=== PATIENT | male | born 1965 | race Caucasian/White ===

== ENCOUNTER → 2017-10-21 | Outpatient (CLI) | payer OTHER ==
[2017-10-21 14:01] LABS: ALBUMIN 3.7 gm/dl (3.4-5.0); ALT/SGPT 100 U/L (12-78); BLOOD UREA NITROGEN 33 mg/dl (7-18); CALCIUM 9.6 mg/dl (8.5-10.1); CARBON DIOXIDE 23 mmol/L (21-32); GLUCOSE 87 mg/dl (70-99); POTASSIUM 4.3 mmol/L (3.5-5.1); SODIUM 130 mmol/L (136-145)
[2017-10-21 14:12] LABS: ALKALINE PHOSPHATASE 83 U/L (45-117); AST/SGOT 97 U/L (15-37); TOTAL PROTEIN 8.2 gm/dl (6.4-8.2)
[2017-10-22 06:12] LABS: HEMOGLOBIN A1C 5.4 % (4.5-5.6)
== END | disposition home or self-care (01) ==
LOC: C.LABPBG 08:01
PROVIDERS: ATTEND Family Medicine
DX: R74.8 Abnormal levels of other serum enzymes (principal); R42 Dizziness and giddiness; R25.1 Tremor, unspecified; Z13.1 Encounter for screening for diabetes mellitus